=== PATIENT | male | born 1955 | race Caucasian/White ===

== ENCOUNTER 2016-10-16 15:52 | Emergency (ER) | payer BC, OTHER ==
[2016-10-16 16:27] VITALS: BP 140/83
--- NOTE | 2016-10-16 16:40 | UC ---
Lower Extremity/Ankle HPI - HPI Summary HPI Summary: Patient has developed swelling and erythema over the dorsum of the left foot. - History of Current Complaint Chief Complaint: UCLowerExtremity Stated Complaint: FOOT PAIN Time Seen by Provider: 10/16/16 16:24 Hx Obtained From: Patient Onset/Duration: Sudden Onset, Lasting Days Severity Initially: Mild Severity Currently: Moderate Aggravating Factor(s): Standing, Ambulation Alleviating Factor(s): Nothing Able to Bear Weight: Yes - Allergies/Home Medications Allergies/Adverse Reactions: Allergies Allergy/AdvReac Type Severity Reaction Status Date / Time No Known Allergies Allergy Verified 07/08/14 17:42 Home Medications: Home Medications Aspirin [Aspirin Adult Low Dose 81 MG] 81 mg PO 10/16/16 [History] Naproxen Sodium [Naproxen Sodium 220 mg cap] 220 mg PO 10/16/16 [History] PMH/Surg Hx/FS Hx/Imm Hx Previously Healthy: Yes Endocrine History Of: Denies: Diabetes, Thyroid Disease Cardiovascular History Of: Denies: Cardiac Disorders, Hypertension Respiratory History Of: Denies: COPD, Asthma GI/ History Of: Denies: Ulcer - Surgical History Surgical History: None - Family History Known Family History: Negative: Cardiac Disease, Hypertension - Social History Alcohol Use: Weekly Substance Use Type: None Smoking Status (MU): Never Smoked Tobacco Review of Systems Constitutional: Negative Skin: Other - redness Eyes: Negative ENT: Negative Respiratory: Negative Cardiovascular: Negative Gastrointestinal: Negative Genitourinary: Negative Motor: Negative Neurovascular: Negative Musculoskeletal: Arthralgia, Edema, Myalgia Neurological: Negative Psychological: Negative All Other Systems Reviewed And Are Negative: Yes Physical Exam Triage Information Reviewed: Yes Appearance: Well-Appearing, Well-Nourished, Pain Distress Vital Signs: Initial Vital Signs Temp 97.2 F 10/16/16 16:22 Pulse 69 10/16/16 16:22 Resp 18 10/16/16 16:22 BP 140/83 10/16/16 16:22 Pulse Ox 99 10/16/16 16:22 Vital Signs Reviewed: Yes Eye Exam: Normal Eyes: Positive: Conjunctiva Clear ENT Exam: Normal ENT: Positive: Normal ENT inspection, Hearing grossly normal, Pharynx normal, TMs normal Dental Exam: Normal Neck exam: Normal Neck: Positive: Supple, Nontender, No Lymphadenopathy Respiratory Exam: Normal Respiratory: Positive: Chest non-tender, Lungs clear, Normal breath sounds Cardiovascular Exam: Normal Cardiovascular: Positive: RRR, No Murmur, Pulses Normal Abdominal Exam: Normal Abdomen Description: Positive: Nontender, No Organomegaly, Soft Bowel Sounds: Positive: Present Musculoskeletal Exam: Normal Musculoskeletal: Positive: Strength Intact, ROM Intact, Edema @ - over the dorsum of the left foot, +pedal pulse and good sensation and movement Neurological Exam: Normal Neurological: Positive: Alert, Muscle Tone Normal Psychological Exam: Normal Lower Extremity Course/Dx - Course Course Of Treatment: hx obtained, exam performed, meds reviewed, jose applied and treated for cellulitis. - Differential Dx/Diagnosis Differential Diagnosis/HQI/PQRI: Cellulitis, Contusion, Fracture (Closed), Gout , Infection, Sprain, Strain Provider Diagnoses: left foot cellulitis. edema Discharge - Discharge Plan Condition: Stable Disposition: HOME Prescriptions: Cephalexin CAP* [Keflex 500 CAP*] 500 mg PO BID #14 cap Patient Education Materials: Cellulitis (ED) Referrals: Christiano Sin MD [Primary Care Provider] - Additional Instructions: 1. Warm foot soaks twice a day 2. Wear the jose wrap and elevated foot as much as possible to reduce swelling. 3. Check foot wear for proper foot 4. Take the medication as prescribed.
== END 2016-10-16 16:51 | disposition home or self-care (01) ==
LOC: UCEAST 15:52
DX: L03.116 Cellulitis of left lower limb (principal); R60.9 Edema, unspecified; Z79.82 Long term (current) use of aspirin
CPT/HCPCS: 99212; G0463

== ENCOUNTER 2017-08-27 16:05 | Emergency (ER) | payer OTHER ==
[2017-08-27 17:23] VITALS: BP 150/101
--- NOTE | 2017-08-27 18:12 | UC ---
Eye Complaint HPI - History of Current Complaint Chief Complaint: UCEye Stated Complaint: EYE DRAINAGE Time Seen by Provider: 08/27/17 18:04 Hx Obtained From: Patient Onset/Duration: Gradual Onset - started 7-8 days ago when in [place], with clear weeping of bilat eyes, and eye lids are red, no vision deficit Severity Initially: Mild Pain Intensity: 0 Location of Injury: Eye Lid (upper) Aggravating Factor(s): Nothing Alleviating Factor(s): Nothing Associated Signs And Symptoms: Positive: Drainage (Clear). Negative: Photophobia, Drainage (Purulent), Vision Impairment Bilateral Related History: Similar Episode - skin fungus - Allergies/Home Medications Allergies/Adverse Reactions: Allergies Allergy/AdvReac Type Severity Reaction Status Date / Time No Known Allergies Allergy Verified 08/27/17 17:24 PMH/Surg Hx/FS Hx/Imm Hx Previously Healthy: Yes - Surgical History Surgical History: None - Family History Known Family History: Negative: Cardiac Disease, Hypertension - Social History Occupation: Employed Full-time Lives: With Family Alcohol Use: Occasionally Substance Use Type: None Smoking Status (MU): Never Smoked Tobacco Review of Systems Constitutional: Negative ENT: Negative Respiratory: Negative Cardiovascular: Negative Musculoskeletal: Negative Neurological: Negative Psychological: Negative Is Patient Immunocompromised?: No All Other Systems Reviewed And Are Negative: Yes Physical Exam Triage Information Reviewed: Yes Appearance: Well-Appearing, No Pain Distress, Well-Nourished Vital Signs: Initial Vital Signs Temp 96.7 F 08/27/17 17:20 Pulse 59 08/27/17 17:20 Resp 18 08/27/17 17:20 BP 150/101 08/27/17 17:20 Pulse Ox 97 08/27/17 17:20 Vital Signs Reviewed: Yes Eye Exam: Normal Eyes: Positive: Conjunctiva Clear, Other: - bilateral upper eye lids mildly erythemic. Negative: Discharge Respiratory Exam: Normal Cardiovascular Exam: Normal Musculoskeletal Exam: Normal Neurological Exam: Normal Psychological Exam: Normal Eye Complaint Course/Dx - Differential Dx/Diagnosis Differential Diagnosis/HQI/PQRI: Conjunctivitis, Corneal Abrasion, Other - skin infection Provider Diagnoses: fungal skin infection Discharge - Discharge Plan Condition: Good Disposition: HOME Prescriptions: Clotrimazole 1% CREAM* [Clotrimazole 1%*] 1 applic TOPICAL BID #1 tube Patient Education Materials: Tinea Corporis (ED) Referrals: No Primary Care Phys,NOPCP [Primary Care Provider] - Additional Instructions: use cream as directed keep skin clean and dry
== END 2017-08-27 19:11 | disposition home or self-care (01) ==
LOC: UCEAST 16:05
DX: B36.9 Superficial mycosis, unspecified (principal)
CPT/HCPCS: 99212; G0463